=== PATIENT | male | born 1990 | race African-American/Black ===

== ENCOUNTER 2019-06-17 21:16 | Emergency (ER) | payer OTHER ==
[~2019-06-17] VITALS: Ht 165.1 cm; Wt 84.1 kg
[~2019-06-17 21:16] MED LIST: CIPRO 500MG TA500 MG PO; FLEXERIL 1010 MG/TAB PO; HYTRIN1 MG PO; MOTRIN 600600 MG/TAB PO; NAPROSYN500 MG PO; NAPROXEN 3375 MG/TAB PO; NO HOME MEDICATIONS; PERCOCET 325 MG1 TA2 PO
[2019-06-17 21:19] VITALS: BP 128/81; TEMP 98.9
[2019-06-17 21:55] VITALS: PULSE 83
== END 2019-06-17 21:57 | disposition home or self-care (01) ==
LOC: COL.ER 21:16
DX: S93.402A Sprain of unspecified ligament of left ankle, initial encounter (principal); X50.1XXA Overexertion from prolonged static or awkward postures, initial encounter; Y93.67 Activity, basketball

== ENCOUNTER 2021-10-08 20:53 | Emergency (ER) | payer SELFPAY ==
[~2021-10-08] VITALS: Ht 177.8 cm; Wt 79.5 kg
[2021-10-08 21:02] VITALS: TEMP 98.5
[2021-10-08 22:05] LABS: C-REACTIVE PROTEIN 0.44 mg/dL (0.00-0.50); CALCIUM 9.1 mg/dL (8.4-10.2); CREATININE, serum 1.12 mg/dL (0.72-1.25); POTASSIUM 3.6 mmol/L (3.5-4.5); TOTAL PROTEIN 6.9 gm/dL (6.2-8.1)
[2021-10-08 22:07] LABS: BASO % 0.3 % (0.0-2.0); EOS % 0.4 % (0-4.0); GRAN # 6.5 K/mm3 (1.4-6.5); GRAN % 63.7 % (42.2-75.2); HEMATOCRIT 42.2 % (42.0-52.0); HEMOGLOBIN 13.3 g/dl (13.5-18.0); LYMPH % 28.8 % (20.0-51.0); MEAN CELL VOLUME 79 fl (80.0-100.0); MEAN CORPUSCULAR HEMOGLOBIN 25 pg (27.0-31.0); MEAN CORPUSCULAR HGB CONC 32 g/dl (33.0-37.0); MEAN PLATELET VOLUME 11.7 fl (7.4-10.4); MONO # 0.6 K/mm3 (0.1-0.6); MONO % 6.2 % (1.7-9.3); PLATELET COUNT 191 K/mm3 (130-400); RED BLOOD COUNT 5.35 M/mm3 (4.20-5.60); REDCELL DISTRIBUTION WIDTH-CV 12.6 % (11.5-14.5)
[2021-10-08] MEDS ORDERED: ZOFRAN ODT4 MG PO (22:19)
[2021-10-08 23:10] VITALS: BP 146/97; PULSE 83
== END 2021-10-08 23:10 | disposition home or self-care (01) ==
LOC: COL.ER 20:53
PROVIDERS: Emergency Medicine
DX: B34.9 Viral infection, unspecified (principal); F17.210 Nicotine dependence, cigarettes, uncomplicated; Z20.822 Contact with and (suspected) exposure to COVID-19
CPT/HCPCS: J1885; J2550; J7030

== ENCOUNTER 2022-05-20 11:07 | Emergency (ER) | payer SELFPAY ==
[~2022-05-20 11:07] MED LIST changes: +ZOFRAN ODT4 MG PO
[2022-05-20 11:10] VITALS: TEMP 97.6
[2022-05-20 11:59] LABS: BASO % 0.5 % (0.0-2.0); EOS # 0.1 K/mm3 (0.0-0.7); EOS % 1.1 % (0.0-4.0); GRAN % 62.7 % (42.2-75.2); HEMATOCRIT 44.9 % (42.0-52.0); HEMOGLOBIN 13.6 g/dl (13.5-18.0); LYMPH # 2.3 K/mm3 (1.2-3.4); LYMPH % 28.6 % (20.0-51.0); MEAN CELL VOLUME 83 fl (80.0-100.0); MEAN CORPUSCULAR HEMOGLOBIN 25 pg (27-31); MEAN CORPUSCULAR HGB CONC 30 g/dl (33.0-37.0); MONO # 0.5 K/mm3 (0.1-0.6); MONO % 6.5 % (1.7-9.3); PLATELET COUNT 186 K/mm3 (130-400); RED BLOOD COUNT 5.43 M/mm3 (4.20-5.60); REDCELL DISTRIBUTION WIDTH-CV 12.8 % (11.5-14.5)
[2022-05-20 13:15] LABS: ACETAMINOPHEN < 1.0 ug/mL (10-30); ALANINE AMINOTRANSFERASE 16 U/L (0-55); ALBUMIN 3.7 gm/dL (3.5-5.0); ALCOHOL(ethanol),MEDICAL 212 mg/dL (0-10); ALKALINE PHOSPHATASE 85 U/L (40-150); ANION GAP 12 mmol/L (7-16); AST,SGOT 20 U/L (5-34); BILIRUBIN,TOTAL 0.9 mg/dL (0.2-1.2); BLOOD UREA NITROGEN 10 mg/dL (9-21); CALCIUM 8.1 mg/dL (8.4-10.2); CARBON DIOXIDE 24 mmol/L (22-29); CHLORIDE 111 mmol/L (98-107); CREATININE, serum 1.17 mg/dL (0.72-1.25); GLUCOSE 103 mg/dL (70-99); POTASSIUM 3.3 mmol/L (3.5-4.5); SALICYLATE < 5.0 mg/dL (15.0-30.0); SODIUM 147 mmol/L (136-145); TOTAL PROTEIN 6.8 gm/dL (6.2-8.1); TROPONIN-I < 0.010 ng/mL (0.00-0.033)
[2022-05-20 16:30] VITALS: BP 111/78; PULSE 80
== END 2022-05-20 16:31 | disposition home or self-care (01) ==
LOC: COL.ER 11:07
PROVIDERS: Emergency Medicine
DX: F19.920 Other psychoactive substance use, unspecified with intoxication, uncomplicated (principal); E86.0 Dehydration; E87.6 Hypokalemia; F17.200 Nicotine dependence, unspecified, uncomplicated; R74.02 Elevation of levels of lactic acid dehydrogenase [LDH]; Z28.310 Unvaccinated for COVID-19
CPT/HCPCS: J3480; J7030